=== PATIENT | female | born 1985 | race Caucasian/White ===

== ENCOUNTER 2018-10-03 12:31 | Inpatient (IN) | payer BC ==
[~2018-10-03] VITALS: Ht 170.2 cm; Wt 88.5 kg
[2018-10-03] MEDS: LR 1,000 ML IV SCH (08:45)
[2018-10-03] MEDS ORDERED: LR 1,000 ML IV ONE (13:35)
[2018-10-03] MEDS ORDERED: CEFAZOLIN 2 GM IVPB PREMIX 50 ML IV ONE ×2 (13:45→13:56)
[2018-10-03 14:09] LABS: BILIRUBIN,URINE NEGATIVE (NEGATIVE); BLOOD, URINE NEGATIVE (NEGATIVE); CLARITY/URINE CLEAR (CLEAR); COLOR,URINE YELLOW (YELLOW); GLUCOSE,URINE NEGATIVE (NEGATIVE); KETONES,URINE NEGATIVE (NEGATIVE); LEUKOCYTE ESTERASE ,URINE NEGATIVE (NEGATIVE); NITRITE, URINE NEGATIVE (NEGATIVE); PROTEIN URINE NEGATIVE (NEGATIVE); UROBILINOGEN,URINE 0.2 (0.2-1.0)
[2018-10-03 14:28] LABS: BASOPHILS % (AUTO) 0.1 % (0.0-2.0); EOSINOPHILS # (AUTO) 0.1 K/uL (0.0-0.4); EOSINOPHILS % (AUTO) 0.7 % (0.0-4.0); HEMATOCRIT 38.5 % (36-48); HEMOGLOBIN 13.1 g/dL (12.0-16.0); LYMPHOCYTES # (AUTO) 2.5 K/uL (1.0-5.5); LYMPHOCYTES % (AUTO) 20.9 % (20.5-51.5); MEAN CORPUSCULAR HEMOGLOBIN 33 pg (27-31); MEAN CORPUSCULAR HGB CONC 34 % (32-36); MEAN CORPUSCULAR VOLUME 97 fL (79.0-98.0); MONOCYTES # (AUTO) 0.7 K/uL (0.0-1.0); MONOCYTES % (AUTO) 5.6 % (1.7-9.3); NEUTROPHILS # (AUTO) 8.5 K/uL (1.8-7.7); NEUTROPHILS % (AUTO) 72.7 % (40.0-70.0); PLATELET COUNT (AUTO) 215 K/uL (130-430); RED BLOOD CELL COUNT(AUTO) 3.99 MIL/uL (4.2-6.2); RED CELL DISTRIBUTION WIDTH 12.2 % (9.0-15.0); WHITE BLOOD COUNT (AUTO) 11.8 K/uL (4.8-10.8)
[2018-10-03] MEDS ORDERED: LR 1,000 ML IV SCH (16:45)
[2018-10-03 16:51] VITALS: BP_SYST 126
[2018-10-03] MEDS ORDERED: OXYTOCIN/0.9 % SODIUM CHLORIDE 1,000 ML IV ONE (18:52)
[2018-10-03] MEDS ORDERED: KETOROLAC TROMETHAMINE 60 MG/2 ML VIAL IM PRN (19:00)
[2018-10-03] MEDS ORDERED: RHO(D) IMMUNE GLOBULIN/MALTOSE 1500 UNITS/1.3 ML (WINHRO) IM PRN (19:00)
[2018-10-03] MEDS ORDERED: NALOXONE HCL 0.4 MG/ML AMP (NARCAN) IVP PRN ×2 (19:00)
[2018-10-03] MEDS ORDERED: MEASLES,MUMPS&RUBELLA VACC/PF 12500 UNIT/0.5 ML VIAL SUBQ PRN (19:00)
[2018-10-03] MEDS ORDERED: NALBUPHINE HCL 10 MG/ML AMP IVP PRN (19:00)
[2018-10-03] MEDS ORDERED: DIPH-TET-PERTUS Vaccine 0.5 ML VIAL (ADACEL) I.M. PRN (19:00)
[2018-10-03] MEDS ORDERED: LANOLIN 7 GM OINT. TP PRN (19:00)
[2018-10-03] MEDS ORDERED: fentaNYL CITRATE/PF 100 MCG/2 ML AMP IVP PRN ×2 (19:00)
[2018-10-03] MEDS ORDERED: ONDANSETRON HCL 4 MG/2 ML VIAL IVP PRN (19:00)
[2018-10-03] MEDS ORDERED: DIPHENHYDRAMINE INJ 50 MG/ML VIAL IVP PRN (19:00)
[2018-10-03] MEDS ORDERED: MORPHINE SULFATE 10MG/10ML PF AMP SP SCH (19:00)
[2018-10-03] MEDS ORDERED: BISACODYL 10 MG/SUPPOSITORY RC PRN (19:00)
[2018-10-03 19:09] VITALS: BP_SYST 102
[2018-10-03] MEDS ORDERED: HYDROcodone/ACETAMIN 5-325 MG TAB (NORCO/ VICODIN) PO PRN (21:00)
[2018-10-03] MEDS ORDERED: TEMAZEPAM 15 MG CAPSULE PO PRN (21:00)
[2018-10-03] MEDS: CEFAZOLIN 1 GM IVPB PREMIX 50 ML IV SCH (23:32)
[2018-10-04] MEDS: CEFAZOLIN 1 GM IVPB PREMIX 50 ML IV SCH (06:17)
[2018-10-04] MEDS: KETOROLAC TROMETHAMINE 30 MG VIAL IVP SCH ×4 (06:18→23:28)
[2018-10-04 07:33] LABS: BASOPHILS % (AUTO) 0.2 % (0.0-2.0); EOSINOPHILS # (AUTO) 0.1 K/uL (0.0-0.4); EOSINOPHILS % (AUTO) 0.9 % (0.0-4.0); HEMATOCRIT 32.9 % (36-48); HEMOGLOBIN 11.3 g/dL (12.0-16.0); LYMPHOCYTES # (AUTO) 2.6 K/uL (1.0-5.5); LYMPHOCYTES % (AUTO) 17.6 % (20.5-51.5); MEAN CORPUSCULAR HEMOGLOBIN 33 pg (27-31); MEAN CORPUSCULAR HGB CONC 34 % (32-36); MEAN CORPUSCULAR VOLUME 97 fL (79.0-98.0); MONOCYTES % (AUTO) 6.5 % (1.7-9.3); NEUTROPHILS # (AUTO) 11.2 K/uL (1.8-7.7); NEUTROPHILS % (AUTO) 74.8 % (40.0-70.0); PLATELET COUNT (AUTO) 180 K/uL (130-430); RED BLOOD CELL COUNT(AUTO) 3.41 MIL/uL (4.2-6.2); RED CELL DISTRIBUTION WIDTH 12.2 % (9.0-15.0); WHITE BLOOD COUNT (AUTO) 14.9 K/uL (4.8-10.8)
[2018-10-04] MEDS: LR 1,000 ML IV SCH (08:45)
[2018-10-04] MEDS: OXYCODONE/ACETAMINOPHEN 5-325 TABLET PO PRN (15:12)
[2018-10-04] MEDS: SIMETHICONE 80 MG TAB.CHEW PO PRN ×2 (15:12→23:28)
[2018-10-04] MEDS: DOCUSATE SODIUM 100 MG CAPSULE PO PRN (15:12)
[2018-10-05] MEDS: IBUPROFEN 600 MG TABLET PO SCH ×4 (06:21→19:50)
[2018-10-05] MEDS: OXYCODONE/ACETAMINOPHEN 5-325 TABLET PO PRN ×2 (12:50→19:52)
[2018-10-05] MEDS: SENNOSIDES/DOCUSATE SODIUM 1 TAB TABLET(SENOKOT-S) PO PRN (12:50)
[2018-10-05] MEDS: DOCUSATE SODIUM 100 MG CAPSULE PO PRN (12:50)
[2018-10-05] MEDS: SIMETHICONE 80 MG TAB.CHEW PO PRN ×2 (12:51→19:06)
[2018-10-06] MEDS: IBUPROFEN 600 MG TABLET PO SCH ×4 (02:00→17:50)
[2018-10-06] MEDS: OXYCODONE/ACETAMINOPHEN 5-325 TABLET PO PRN ×5 (08:20→22:24)
[2018-10-06] MEDS: SIMETHICONE 80 MG TAB.CHEW PO PRN (12:26)
[2018-10-06] MEDS: DOCUSATE SODIUM 100 MG CAPSULE PO PRN (12:26)
[2018-10-06] MEDS: SENNOSIDES/DOCUSATE SODIUM 1 TAB TABLET(SENOKOT-S) PO PRN (13:20)
[2018-10-07] MEDS: IBUPROFEN 600 MG TABLET PO SCH ×2 (00:47→06:17)
[2018-10-07] MEDS: OXYCODONE/ACETAMINOPHEN 5-325 TABLET PO PRN ×3 (03:02→09:35)
[2018-10-07] MEDS ORDERED: MORPHINE SULFATE 10MG/10ML PF AMP EP ONE (17:50)
[2018-10-07] MEDS ORDERED: WATER FOR IRRIGATION,STERILE 1,000 ML IRRIG.SOLN IR ONE (17:50)
[2018-10-07] MEDS ORDERED: MIDAZOLAM HCL 5 MG/5 ML VIAL IVP ONE (17:50)
[2018-10-07] MEDS ORDERED: ONDANSETRON HCL 4 MG/2 ML VIAL IVP ONE (17:50)
[2018-10-07] MEDS ORDERED: NS 1000 ML IV.SOLN IV ONE (17:50)
[2018-10-07] MEDS ORDERED: LR 1,000 ML IV.SOLN IV ONE (17:50)
[2018-10-07] MEDS ORDERED: BUPIVACAINE /PF 0.5% 30 ML VIAL EP ONE (17:50)
== END 2018-10-07 11:54 | disposition home or self-care (01) | DRG 787 ==
LOC: SPU 12:31
PROVIDERS: ADMIT Specialist; ATTEND Specialist
PROC: 10D00Z1 Extraction of Products of Conception, Low, Open Approach (ICD-10-PCS; principal; 2018-10-05)
DX: O75.89 Other specified complications of labor and delivery (principal); Q79.6 Ehlers-Danlos syndromes; Z3A.39 39 weeks gestation of pregnancy; Z37.0 Single live birth
CPT/HCPCS: 36415; 81003; 85025; 86592; 86886; 86900; 86901; 94760; A4618; J0690; J1885; J2250; J2274; J2405; J2590; J3490; J7030; J7120

== ENCOUNTER 2019-10-25 13:13 | Observation (INO) | payer BC | END 2019-10-25 14:45 | disposition home or self-care (01) | LOC: SPU 13:13 | PROVIDERS: ADMIT Specialist; ATTEND Specialist | DX: O26.892 Other specified pregnancy related conditions, second trimester (principal); R51 Headache; O99.89 Other specified diseases and conditions complicating pregnancy, childbirth and the puerperium; H53.8 Other visual disturbances; Z3A.20 20 weeks gestation of pregnancy | CPT/HCPCS: 81002; G0378 ==

== ENCOUNTER 2019-11-15 09:09 | Inpatient (IN) | payer BC ==
[~2019-11-15] VITALS: Ht 170.2 cm; Wt 93.9 kg
[2019-11-15] MEDS ORDERED: LR 1,000 ML IV ONE (14:50)
[2019-11-15] MEDS ORDERED: CEFAZOLIN 2 GM IVPB PREMIX 50 ML IV ONE (15:00)
[2019-11-15 15:38] LABS: BILIRUBIN,URINE NEGATIVE (NEGATIVE); BLOOD, URINE NEGATIVE (NEGATIVE); CLARITY/URINE CLEAR (CLEAR); COLOR,URINE YELLOW (YELLOW); GLUCOSE,URINE NEGATIVE (NEGATIVE); KETONES,URINE NEGATIVE (NEGATIVE); LEUKOCYTE ESTERASE ,URINE NEGATIVE (NEGATIVE); NITRITE, URINE NEGATIVE (NEGATIVE); PH,URINE 6.5 (5.0-8.0); PROTEIN URINE NEGATIVE (NEGATIVE); UROBILINOGEN,URINE 0.2 (0.2-1.0)
[2019-11-15 15:48] LABS: BASOPHILS % (AUTO) 0.3 % (0.0-2.0); EOSINOPHILS # (AUTO) 0.1 K/uL (0.0-0.4); EOSINOPHILS % (AUTO) 0.8 % (0.0-4.0); HEMATOCRIT 39.1 % (36-48); HEMOGLOBIN 13.3 g/dL (12.0-16.0); LYMPHOCYTES # (AUTO) 4.2 K/uL (1.0-5.5); LYMPHOCYTES % (AUTO) 27.8 % (20.5-51.5); MEAN CORPUSCULAR HEMOGLOBIN 33 pg (27-31); MEAN CORPUSCULAR HGB CONC 34 % (32-36); MEAN CORPUSCULAR VOLUME 96 fL (79.0-98.0); MONOCYTES # (AUTO) 0.8 K/uL (0.0-1.0); MONOCYTES % (AUTO) 5.3 % (1.7-9.3); NEUTROPHILS # (AUTO) 9.9 K/uL (1.8-7.7); NEUTROPHILS % (AUTO) 65.8 % (40.0-70.0); PLATELET COUNT (AUTO) 236 K/uL (130-430); RED BLOOD CELL COUNT(AUTO) 4.08 MIL/uL (4.2-6.2); RED CELL DISTRIBUTION WIDTH 12.9 % (9.0-15.0); WHITE BLOOD COUNT (AUTO) 15.1 K/uL (4.8-10.8)
[2019-11-15] MEDS ORDERED: LR 1,000 ML IV.SOLN IV ONE (16:00)
[2019-11-15] MEDS ORDERED: NEOSTIGMINE METHYLSULFATE 1 MG/ML, 10 ML VIAL IVP ONE (16:00)
[2019-11-15] MEDS ORDERED: ONDANSETRON HCL 4 MG/2 ML VIAL IVP ONE (16:00)
[2019-11-15] MEDS ORDERED: MIDAZOLAM HCL 5 MG/5 ML VIAL IVP ONE (16:00)
[2019-11-15] MEDS ORDERED: TRIAMCINOLONE ACETONIDE 40 MG/ML IM ONE (16:00)
[2019-11-15] MEDS ORDERED: BUPIVACAINE /DEX PF 0.75% SPINAL 2 ML AMP INJ ONE (16:00)
[2019-11-15] MEDS ORDERED: MORPHINE SULFATE 10MG/10ML PF AMP EP ONE (16:00)
[2019-11-15] MEDS ORDERED: KETOROLAC TROMETHAMINE 30 MG VIAL IVP ONE (16:00)
[2019-11-15] MEDS ORDERED: TRIAMCINOLONE ACETONIDE 40 MG/ML ONE (16:44)
[2019-11-15] MEDS ORDERED: KETOROLAC TROMETHAMINE 60 MG/2 ML VIAL IM PRN (16:45)
[2019-11-15] MEDS ORDERED: MORPHINE SULFATE 10MG/10ML PF AMP SP SCH (16:45)
[2019-11-15] MEDS ORDERED: ONDANSETRON HCL 4 MG/2 ML VIAL IVP PRN (16:45)
[2019-11-15] MEDS ORDERED: DIPHENHYDRAMINE INJ 50 MG/ML VIAL IVP PRN (16:45)
[2019-11-15] MEDS ORDERED: fentaNYL CITRATE/PF 100 MCG/2 ML AMP IVP PRN ×2 (16:45)
[2019-11-15] MEDS ORDERED: NALBUPHINE HCL 10 MG/ML AMP IVP PRN (16:45)
[2019-11-15] MEDS ORDERED: NALOXONE HCL 0.4 MG/ML AMP (NARCAN) IVP PRN ×2 (16:45)
[2019-11-15] MEDS ORDERED: LR 1,000 ML IV SCH (17:01)
[2019-11-15] MEDS ORDERED: OXYCODONE/ACETAMINOPHEN 5-325 TABLET PO PRN (17:15)
[2019-11-15] MEDS ORDERED: DIPH-TET-PERTUS Vaccine 0.5 ML VIAL (ADACEL) I.M. PRN (17:15)
[2019-11-15] MEDS ORDERED: ANUSOL 1 EA SUPP.RECT (PREPARATION H) RC PRN (17:15)
[2019-11-15] MEDS ORDERED: BISACODYL 10 MG/SUPPOSITORY RC PRN (17:15)
[2019-11-15] MEDS ORDERED: LANOLIN 7 GM OINT. TP PRN (17:15)
[2019-11-15] MEDS ORDERED: SENNOSIDES/DOCUSATE SODIUM 1 TAB TABLET(SENOKOT-S) PO PRN (17:15)
[2019-11-15] MEDS ORDERED: RHO(D) IMMUNE GLOBULIN/MALTOSE 1500 UNITS/1.3 ML (WINHRO) IM PRN (17:15)
[2019-11-15] MEDS ORDERED: MEASLES,MUMPS&RUBELLA VACC/PF 12500 UNIT/0.5 ML VIAL SUBQ PRN (17:15)
[2019-11-15] MEDS ORDERED: OXYTOCIN/0.9 % SODIUM CHLORIDE 1,000 ML IV ONE (17:31)
[2019-11-15] MEDS ORDERED: KETOROLAC TROMETHAMINE 30 MG VIAL IVP SCH (18:00)
[2019-11-15 18:46] VITALS: BP_SYST 123
[2019-11-15] MEDS: CEFAZOLIN 1 GM IVPB PREMIX 50 ML IV SCH (20:57)
[2019-11-15] MEDS: KETOROLAC TROMETHAMINE 30 MG VIAL IVP SCH (20:58)
[2019-11-16] MEDS: SIMETHICONE 80 MG TAB.CHEW PO PRN ×5 (00:57→18:16)
[2019-11-16] MEDS: DOCUSATE SODIUM 100 MG CAPSULE PO PRN ×2 (00:58→18:16)
[2019-11-16] MEDS: OXYTOCIN/0.9 % SODIUM CHLORIDE 1,000 ML IV SCH ×2 (00:59→10:36)
[2019-11-16] MEDS: KETOROLAC TROMETHAMINE 30 MG VIAL IVP SCH ×3 (03:26→15:17)
[2019-11-16] MEDS: CEFAZOLIN 1 GM IVPB PREMIX 50 ML IV SCH ×2 (03:27→09:14)
[2019-11-16 07:03] LABS: BASOPHILS # (AUTO) 0.1 K/uL (0.0-0.2); BASOPHILS % (AUTO) 0.3 % (0.0-2.0); EOSINOPHILS % (AUTO) 0.1 % (0.0-4.0); HEMOGLOBIN 12.1 g/dL (12.0-16.0); LYMPHOCYTES % (AUTO) 16.7 % (20.5-51.5); MEAN CORPUSCULAR HEMOGLOBIN 33 pg (27-31); MEAN CORPUSCULAR HGB CONC 35 % (32-36); MEAN CORPUSCULAR VOLUME 96 fL (79.0-98.0); MONOCYTES # (AUTO) 0.9 K/uL (0.0-1.0); MONOCYTES % (AUTO) 5.4 % (1.7-9.3); NEUTROPHILS # (AUTO) 13.7 K/uL (1.8-7.7); NEUTROPHILS % (AUTO) 77.5 % (40.0-70.0); PLATELET COUNT (AUTO) 228 K/uL (130-430); RED BLOOD CELL COUNT(AUTO) 3.64 MIL/uL (4.2-6.2); WHITE BLOOD COUNT (AUTO) 17.7 K/uL (4.8-10.8)
[2019-11-16] MEDS: IBUPROFEN 600 MG TABLET PO SCH (18:17)
[2019-11-17] MEDS: IBUPROFEN 600 MG TABLET PO SCH ×6 (00:01→23:44)
[2019-11-17] MEDS: TEMAZEPAM 15 MG CAPSULE PO PRN ×2 (00:16→23:07)
[2019-11-17] MEDS: OXYCODONE/ACETAMINOPHEN *10*mg/325 mg TABLET PO PRN ×5 (00:16→20:09)
[2019-11-17] MEDS: DOCUSATE SODIUM 100 MG CAPSULE PO PRN (06:22)
[2019-11-17] MEDS: SIMETHICONE 80 MG TAB.CHEW PO PRN (06:22)
[2019-11-17] MEDS: HYDROcodone/ACETAMIN 5-325 MG TAB (NORCO/ VICODIN) PO PRN (20:10)
[2019-11-18] MEDS: HYDROcodone/ACETAMIN 5-325 MG TAB (NORCO/ VICODIN) PO PRN (05:48)
[2019-11-18] MEDS: OXYCODONE/ACETAMINOPHEN *10*mg/325 mg TABLET PO PRN ×3 (05:49→20:35)
[2019-11-18] MEDS: IBUPROFEN 600 MG TABLET PO SCH ×4 (05:49→23:45)
[2019-11-18] MEDS: TEMAZEPAM 15 MG CAPSULE PO PRN (20:34)
[2019-11-19] MEDS: OXYCODONE/ACETAMINOPHEN *10*mg/325 mg TABLET PO PRN ×2 (02:51→06:58)
[2019-11-19] MEDS: IBUPROFEN 600 MG TABLET PO SCH (06:11)
== END 2019-11-19 09:00 | disposition home or self-care (01) | DRG 787 ==
LOC: OBSVTOIN 09:09 → SPU 09:09
PROVIDERS: ADMIT Specialist; ATTEND Specialist
PROC: 10D00Z1 Extraction of Products of Conception, Low, Open Approach (ICD-10-PCS; principal; 2019-11-16)
DX: O34.211 Maternal care for low transverse scar from previous cesarean delivery (principal); Q79.60 Ehlers-Danlos syndrome, unspecified; O75.89 Other specified complications of labor and delivery; O41.8X90 Other specified disorders of amniotic fluid and membranes, unspecified trimester, not applicable or unspecified; Z37.0 Single live birth; Z3A.38 38 weeks gestation of pregnancy
CPT/HCPCS: 36415; 81003; 85025; 86886; 86900; 86901; 94760; J0690; J1200; J1885; J2250; J2274; J2405; J2590; J2710; J3301; J3490; J7120

== ENCOUNTER 2020-08-16 20:20 | Emergency (ER) | payer BC, MEDICAID ==
[~2020-08-16] VITALS: Ht 170.2 cm; Wt 68.0 kg
[2020-08-16 20:36] VITALS: BP_SYST 152
--- NOTE | 2020-08-16 20:36 | NUR ---
Patient triaged and placed in waiting room. VSS and patient appears in no acute distress at this time. Accompanied by FRIEND, awaiting available bed, and MD notified of need for MSE.
--- NOTE | 2020-08-16 23:00 | NUR ---
Per library clerk, pt LWBS.
== END 2020-08-16 23:00 | disposition left against medical advice (07) ==
LOC: SED 20:20
DX: R11.10 Vomiting, unspecified (principal); R51.9 Headache, unspecified; Z53.21 Procedure and treatment not carried out due to patient leaving prior to being seen by health care provider

== ENCOUNTER 2021-02-21 07:35 | Emergency (ER) | payer MEDICAID ==
[~2021-02-21] VITALS: Ht 170.2 cm; Wt 68.0 kg
[2021-02-21 07:43] VITALS: BP_SYST 119
[2021-02-21] MEDS ORDERED: ONDANSETRON HCL 4 MG/2 ML VIAL IVP ONE (08:00)
[2021-02-21] MEDS ORDERED: NACL 0.9% 1,000 ML IV ONE (08:00)
[2021-02-21 08:42] LABS: BILIRUBIN,URINE NEGATIVE (NEGATIVE); BLOOD, URINE 1+ (NEGATIVE); CLARITY/URINE CLEAR (CLEAR); COLOR,URINE YELLOW (YELLOW); GLUCOSE,URINE NEGATIVE (NEGATIVE); KETONES,URINE NEGATIVE (NEGATIVE); LEUKOCYTE ESTERASE ,URINE NEGATIVE (NEGATIVE); NITRITE, URINE NEGATIVE (NEGATIVE); PROTEIN URINE NEGATIVE (NEGATIVE); UROBILINOGEN,URINE 0.2 (0.2-1.0)
[2021-02-21 08:43] LABS: BASOPHILS % (AUTO) 0.7 % (0.0-2.0); EOSINOPHILS % (AUTO) 0.3 % (0.0-4.0); HEMATOCRIT 40.3 % (36-48); HEMOGLOBIN 13.6 g/dL (12.0-16.0); LYMPHOCYTES # (AUTO) 1.6 K/uL (1.0-5.5); MEAN CORPUSCULAR HEMOGLOBIN 31 pg (27-31); MEAN CORPUSCULAR HGB CONC 34 % (32-36); MEAN CORPUSCULAR VOLUME 91 fL (79.0-98.0); MONOCYTES # (AUTO) 0.2 K/uL (0.0-1.0); MONOCYTES % (AUTO) 3.6 % (1.7-9.3); NEUTROPHILS # (AUTO) 3.5 K/uL (1.8-7.7); NEUTROPHILS % (AUTO) 65.4 % (40.0-70.0); PLATELET COUNT (AUTO) 226 K/uL (130-430); RED BLOOD CELL COUNT(AUTO) 4.42 MIL/uL (4.2-6.2); RED CELL DISTRIBUTION WIDTH 12.4 % (9.0-15.0); WHITE BLOOD COUNT (AUTO) 5.4 K/uL (4.8-10.8)
[2021-02-21 08:52] LABS: CALCIUM 9.5 mg/dL (8.4-11.0); CREATININE 1.05 mg/dL (0.55-1.30); POTASSIUM 3.2 mmol/L (3.5-5.1)
[2021-02-21 08:56] LABS: BARBITURATE, URINE NEGATIVE (NEG <=200); BENZODIAZEPINE, URINE POSITIVE (NEG <=150); CANNABINOID, URINE POSITIVE (NEG <=50); COCAINE, URINE NEGATIVE (NEG <=150); METHAMPHETAMINES SCREEN,URINE NEGATIVE (NEG <=500); OPIATE, URINE NEGATIVE (NEG <=100); PHENCYCLIDINE SCREEN,URINE NEGATIVE (NEG <=25); UR TRICYCLIC ANTIDEPRESSANTS NEGATIVE (NEG <=300); URINE AMPHETAMINE NEGATIVE (NEG <=500); URINE METHADONE NEGATIVE (NEG <=200); URINE OXYCODONE SCREEN NEGATIVE (NEG <=100); URINE PROPOXYPHENE SCREEN NEGATIVE (NEG <=300)
[2021-02-21 08:58] LABS: ALBUMIN 4.4 g/dL (3.4-4.8); TOTAL BILIRUBIN 0.7 mg/dL (0.0-1.0)
[2021-02-21 09:06] LABS: BACTERIA,URINE RARE /HPF (None Seen); WBC,URINE 0-3 /HPF (0-3)
[2021-02-21] MEDS ORDERED: ALPR-373 PO (09:19)
[2021-02-21 09:26] VITALS: BP_SYST 119
== END 2021-02-21 09:25 | disposition home or self-care (01) ==
LOC: SED 07:35
DX: F41.9 Anxiety disorder, unspecified (principal); R42 Dizziness and giddiness; Z88.1 Allergy status to other antibiotic agents; Z88.8 Allergy status to other drugs, medicaments and biological substances; Z79.899 Other long term (current) drug therapy
CPT/HCPCS: 36415; 71045; 80053; 80307; 81000; 81025; 82550; 84484; 85025; 93005; 96374; 99285; J2405; J7030

== ENCOUNTER 2021-03-29 08:47 | Emergency (ER) | payer MEDICAID ==
[~2021-03-29] VITALS: Ht 170.2 cm; Wt 68.0 kg
[~2021-03-29 08:47] MED LIST: ALPR-373 PO
--- NOTE | 2021-03-29 09:11 | NUR ---
ER at bedside examining patient.
--- NOTE | 2021-03-29 09:11 | NUR ---
Patient to ER bed 8 to gown for evaluation. Side rails up.
--- NOTE | 2021-03-29 09:12 | NUR ---
PT ARRIVES FROM HOME W/ UNCONTROLLABLE ANXIETY ATTACKS. PT USUALLY TAKES RESPRIDOLE, HOWEVER, SHE RECENTLY RAN OUT,
[2021-03-29 09:15] VITALS: BP_SYST 125
[2021-03-29] MEDS ORDERED: LORazepam 1 MG TABLET PO ONE (09:15)
--- NOTE | 2021-03-29 09:27 | NUR ---
MEDICATED W/ ATIVAN PER MD ORDER
--- NOTE | 2021-03-29 10:00 | NUR ---
DR. CESPEDES AT THE BEDSIDE
[2021-03-29 10:27] VITALS: BP_SYST 125
--- NOTE | 2021-03-29 10:28 | NUR ---
Patient given written and verbal discharge instructions and verbalizes understanding. ER MD discussed with patient the results and treatment provided. Patient in stable condition. ID arm band removed. Rx of CYMBALTA AND SEROQUEL given. Patient educated on pain management and to follow up with PMD. Pain Scale 0/10. Opportunity for questions provided and answered. Medication side effect fact sheet provided.
== END 2021-03-29 09:11 | disposition home or self-care (01) ==
LOC: SED 08:47
DX: F41.0 Panic disorder [episodic paroxysmal anxiety] (principal); Z76.0 Encounter for issue of repeat prescription; Z88.1 Allergy status to other antibiotic agents; Z88.8 Allergy status to other drugs, medicaments and biological substances; Z79.899 Other long term (current) drug therapy
CPT/HCPCS: 99283

== ENCOUNTER 2021-05-02 12:31 | Emergency (ER) | payer MEDICAID ==
[~2021-05-02] VITALS: Ht 170.2 cm; Wt 63.5 kg
[2021-05-02 12:45] VITALS: BP_SYST 139
--- NOTE | 2021-05-02 12:45 | NUR ---
Patient to ER bed 1 to gown for evaluation. Side rails up. Report given to Maria Teresa WEISS.
--- NOTE | 2021-05-02 12:48 | NUR ---
PAGE Meehan at bedside examining patient.
--- NOTE | 2021-05-02 13:00 | NUR ---
PT CAME IN C/O FEELING SHAKY, RACING HEART, CONFUSION AND VISUAL DISTURBANCES, STATES SHE WAS STARTED ON SEROQUEL RECENTLY AND IS TAKING UP TO 200MG DAILY. AT HOME PT HAS BEEN TAKING ATARAX AND BENADRYL TO TREAT SIDE EFFECTS WHICH HAS NOT HELPED. PT PRESENTS WITH RAPID SPEECH AND TACHYCARDIC 120S-140S. AAOX4, OTHER V/S STABLE
[2021-05-02] MEDS ORDERED: NS 1000 ML IV.SOLN IV ONE (13:15)
[2021-05-02] MEDS ORDERED: DIAZEPAM 10 MG/2 ML DISP.SYRIN IVP ONE (13:15)
--- NOTE | 2021-05-02 13:15 | NUR ---
# 20 gauge angiocath placed to LAC. Use of asceptic technique. Opsite placed over site. Blood return noted. Blood for lab drawn from site. Flushed with 10 cc of normal saline. No evidence of infiltration noted. Patient tolerated well.
--- NOTE | 2021-05-02 13:34 | NUR ---
PER PHARMACY IV VALIUM IS NOT AVAILABLE, MADE AWARE
[2021-05-02 13:46] LABS: BASOPHILS % (AUTO) 0.8 % (0.0-2.0); EOSINOPHILS # (AUTO) 0.1 K/uL (0.0-0.4); EOSINOPHILS % (AUTO) 0.8 % (0.0-4.0); HEMATOCRIT 36.4 % (36-48); HEMOGLOBIN 12.6 g/dL (12.0-16.0); LYMPHOCYTES # (AUTO) 2.2 K/uL (1.0-5.5); LYMPHOCYTES % (AUTO) 35.1 % (20.5-51.5); MEAN CORPUSCULAR HEMOGLOBIN 31 pg (27-31); MEAN CORPUSCULAR HGB CONC 35 % (32-36); MEAN CORPUSCULAR VOLUME 90 fL (79.0-98.0); MONOCYTES # (AUTO) 0.3 K/uL (0.0-1.0); MONOCYTES % (AUTO) 5.5 % (1.7-9.3); NEUTROPHILS # (AUTO) 3.6 K/uL (1.8-7.7); NEUTROPHILS % (AUTO) 57.8 % (40.0-70.0); PLATELET COUNT (AUTO) 255 K/uL (130-430); RED BLOOD CELL COUNT(AUTO) 4.04 MIL/uL (4.2-6.2); RED CELL DISTRIBUTION WIDTH 12.6 % (9.0-15.0); WHITE BLOOD COUNT (AUTO) 6.3 K/uL (4.8-10.8)
[2021-05-02 13:50] LABS: CALCIUM 9.2 mg/dL (8.4-11.0); CREATININE 0.99 mg/dL (0.55-1.30)
[2021-05-02 13:54] LABS: PROTHROMBIN TIME 10.9 SECS (9.5-12.5)
[2021-05-02 13:54] LABS: BILIRUBIN,URINE NEGATIVE (NEGATIVE); BLOOD, URINE NEGATIVE (NEGATIVE); CLARITY/URINE CLEAR (CLEAR); COLOR,URINE YELLOW (YELLOW); GLUCOSE,URINE NEGATIVE (NEGATIVE); KETONES,URINE NEGATIVE (NEGATIVE); LEUKOCYTE ESTERASE ,URINE NEGATIVE (NEGATIVE); NITRITE, URINE NEGATIVE (NEGATIVE); PROTEIN URINE NEGATIVE (NEGATIVE); UROBILINOGEN,URINE 0.2 (0.2-1.0)
[2021-05-02 13:56] LABS: ALBUMIN 4.3 g/dL (3.4-4.8); TOTAL BILIRUBIN 0.3 mg/dL (0.0-1.0)
[2021-05-02] MEDS ORDERED: LORazepam 2 MG/ML VIAL IVP ONE (14:00)
--- NOTE | 2021-05-02 14:20 | NUR ---
Guy augustine in [facility] - 05/02/21 at 1638 by [email or web address] ADMISSION ORDERS RECIEVED BY DR. ALTMAN
[2021-05-02] MEDS ORDERED: POTASSIUM CHLORIDE 20 MEQ TAB.PRT.SR PO ONE (14:30)
[2021-05-02] MEDS ORDERED: LORazepam 2 MG/ML VIAL IVP PRN (14:30)
[2021-05-02] MEDS ORDERED: NACL 0.9% 1,000 ML IV SCH (14:30)
[2021-05-02] MEDS ORDERED: LORA-259 PO (15:19)
--- NOTE | 2021-05-02 15:30 | NUR ---
PT RESTING IN BED, STATES "I FEEL SIVA BETTER", IN NO DISTRESS, V/S STABLE
--- NOTE | 2021-05-02 16:28 | NUR ---
Patient given written and verbal discharge instructions and verbalizes understanding. ER MD discussed with patient the results and treatment provided. Patient in stable condition. ID arm band removed. IV catheter removed intact and dressing applied, no active bleeding. Rx of ATIVAN given. Patient educated on pain management and to follow up with PMD. Pain Scale 0/10. Opportunity for questions provided and answered. Medication side effect fact sheet provided.
[2021-05-02 16:30] VITALS: BP_SYST 132
== END 2021-05-02 16:28 | disposition home or self-care (01) ==
LOC: SED 12:31 → UNDOADMIN 14:20 → STU 14:20 → UNDODISIN 16:28 → STU 16:28
DX: F13.239 Sedative, hypnotic or anxiolytic dependence with withdrawal, unspecified (principal); F39 Unspecified mood [affective] disorder; F41.9 Anxiety disorder, unspecified; Z79.899 Other long term (current) drug therapy; Z88.1 Allergy status to other antibiotic agents; Z88.8 Allergy status to other drugs, medicaments and biological substances
CPT/HCPCS: 36415; 71045; 80053; 81003; 82550; 83605; 84443; 84484; 85025; 85610; 85730; 87040; 87086; 93005; 96374; 99285; J2060; G0378

== ENCOUNTER 2021-07-31 11:38 | Emergency (ER) | payer MEDICAID ==
[~2021-07-31] VITALS: Ht 170.2 cm; Wt 63.5 kg
[~2021-07-31 11:38] MED LIST changes: +LORA-259 PO
[2021-07-31 11:45] VITALS: BP_SYST 117
--- NOTE | 2021-07-31 12:24 | NUR ---
PLACED IN [facility]. Dr. MICHELE EXAMINING PT
[2021-07-31] MEDS ORDERED: AMOX500C2 PO (12:29)
--- NOTE | 2021-07-31 12:32 | NUR ---
Patient given written and verbal discharge instructions and verbalizes understanding. ER MD discussed with patient the results and treatment provided. Patient in stable condition. ID arm band removed. Rx of AMOXICILLIN, given. Patient educated on pain management and to follow up with PMD. Pain Scale 0/10 Opportunity for questions provided and answered. Medication side effect fact sheet provided.
[2021-07-31 12:38] VITALS: BP_SYST 117
== END 2021-07-31 12:38 | disposition home or self-care (01) ==
LOC: SED 11:38
DX: S01.511A Laceration without foreign body of lip, initial encounter (principal); Z88.1 Allergy status to other antibiotic agents; Z88.8 Allergy status to other drugs, medicaments and biological substances; Z79.899 Other long term (current) drug therapy; W22.8XXA Striking against or struck by other objects, initial encounter; Y93.89 Activity, other specified; Y92.89 Other specified places as the place of occurrence of the external cause; Y99.8 Other external cause status
CPT/HCPCS: 99283

== ENCOUNTER 2021-12-08 06:13 | Emergency (ER) | payer MEDICAID ==
[~2021-12-08] VITALS: Ht 170.2 cm; Wt 68.0 kg
[~2021-12-08 06:13] MED LIST changes: +AMOX500C2 PO
[2021-12-08 06:25] VITALS: BP_SYST 139
[2021-12-08] MEDS ORDERED: DIPHENHYDRAMINE HCL 25 MG CAPSULE PO ONE (06:45)
[2021-12-08] MEDS ORDERED: METOCLOPRAMIDE HCL 10 MG TABLET PO ONE (06:45)
[2021-12-08] MEDS ORDERED: DIPHENHYDRAMINE HCL 50 MG CAPSULE ONE (06:47)
[2021-12-08] MEDS ORDERED: METOCLOPRAMIDE HCL 10 MG TABLET ONE (06:47)
[2021-12-08] MEDS ORDERED: ONDANSETRON HCL 4 MG/2 ML VIAL IVP ONE (08:00)
[2021-12-08] MEDS ORDERED: NACL 0.9% 1,000 ML IV ONE (08:00)
[2021-12-08] MEDS ORDERED: MORPHINE 2 MG/ML INJ. SYRINGE IVP ONE (08:00)
[2021-12-08] MEDS ORDERED: PANTOPRAZOLE SODIUM 40 MG/VIAL (PROTONIX) IVP ONE (08:00)
[2021-12-08 08:13] LABS: BILIRUBIN,URINE NEGATIVE (NEGATIVE); BLOOD, URINE 2+ (NEGATIVE); CLARITY/URINE SL CLOUDY (CLEAR); COLOR,URINE YELLOW (YELLOW); GLUCOSE,URINE NEGATIVE (NEGATIVE); KETONES,URINE NEGATIVE (NEGATIVE); LEUKOCYTE ESTERASE ,URINE NEGATIVE (NEGATIVE); NITRITE, URINE NEGATIVE (NEGATIVE); PH,URINE 7.5 (5.0-8.0); PROTEIN URINE 1+ (NEGATIVE); UROBILINOGEN,URINE 0.2 (0.2-1.0)
[2021-12-08 08:21] LABS: BASOPHILS # (AUTO) 0.1 K/uL (0.0-0.2); BASOPHILS % (AUTO) 0.4 % (0.0-2.0); EOSINOPHILS % (AUTO) 0.1 % (0.0-4.0); HEMATOCRIT 39.3 % (36-48); HEMOGLOBIN 13.2 g/dL (12.0-16.0); LYMPHOCYTES # (AUTO) 1.6 K/uL (1.0-5.5); LYMPHOCYTES % (AUTO) 10.7 % (20.5-51.5); MEAN CORPUSCULAR HEMOGLOBIN 31 pg (27-31); MEAN CORPUSCULAR HGB CONC 34 % (32-36); MEAN CORPUSCULAR VOLUME 92 fL (79.0-98.0); MONOCYTES # (AUTO) 0.5 K/uL (0.0-1.0); MONOCYTES % (AUTO) 3.4 % (1.7-9.3); NEUTROPHILS # (AUTO) 12.6 K/uL (1.8-7.7); NEUTROPHILS % (AUTO) 85.4 % (40.0-70.0); PLATELET COUNT (AUTO) 327 K/uL (130-430); RED BLOOD CELL COUNT(AUTO) 4.27 MIL/uL (4.2-6.2); RED CELL DISTRIBUTION WIDTH 13.2 % (9.0-15.0); WHITE BLOOD COUNT (AUTO) 14.7 K/uL (4.8-10.8)
[2021-12-08 08:34] LABS: CALCIUM 9.8 mg/dL (8.4-11.0); CREATININE 0.88 mg/dL (0.55-1.30); POTASSIUM 3.7 mmol/L (3.5-5.1)
[2021-12-08 08:40] LABS: ALBUMIN 4.7 g/dL (3.4-4.8); TOTAL BILIRUBIN 0.2 mg/dL (0.0-1.0)
[2021-12-08 09:47] LABS: BACTERIA,URINE FEW /HPF (None Seen); WBC,URINE 0-3 /HPF (0-3)
[2021-12-08] MEDS ORDERED: DIPHENHYDRAMINE INJ 50 MG/ML VIAL IVP ONE (10:00)
[2021-12-08] MEDS ORDERED: MORPHINE 4 MG INJ. 4 MG/ML VIAL IVP ONE (10:00)
[2021-12-08 11:23] VITALS: BP_SYST 130
== END 2021-12-08 11:12 | disposition home or self-care (01) ==
LOC: SED 06:13
DX: R11.2 Nausea with vomiting, unspecified (principal); R51.9 Headache, unspecified; T42.6X5A Adverse effect of other antiepileptic and sedative-hypnotic drugs, initial encounter; Y92.89 Other specified places as the place of occurrence of the external cause
CPT/HCPCS: 36415; 80053; 81000; 83690; 85025; 96361; 96374; 96375; 96376; 99285; C9113; J1200; J2270 ×2; J2405; J7030; J8597; Q0163

== ENCOUNTER 2021-12-09 08:07 | Emergency (ER) | payer MEDICAID ==
[~2021-12-09] VITALS: Ht 170.2 cm; Wt 68.0 kg
[2021-12-09 08:42] VITALS: BP_SYST 145
[2021-12-09] MEDS ORDERED: BENZTROPINE MESYLATE 2 MG/ 2 ML AMP IVP ONE (10:00)
[2021-12-09] MEDS ORDERED: PROCHLORPERAZINE EDISYLATE 10 MG/2 ML VIAL IVP ONE (10:00)
[2021-12-09] MEDS ORDERED: NACL 0.9% 1,000 ML IV ONE (10:00)
[2021-12-09] MEDS ORDERED: METOCLOPRAMIDE HCL 10 MG/2 ML VIAL IVP ONE (10:00)
[2021-12-09 10:08] LABS: BASOPHILS # (AUTO) 0.1 K/uL (0.0-0.2); BASOPHILS % (AUTO) 0.4 % (0.0-2.0); EOSINOPHILS # (AUTO) 0.1 K/uL (0.0-0.4); EOSINOPHILS % (AUTO) 0.6 % (0.0-4.0); HEMATOCRIT 38.7 % (36-48); HEMOGLOBIN 12.7 g/dL (12.0-16.0); LYMPHOCYTES # (AUTO) 2.8 K/uL (1.0-5.5); LYMPHOCYTES % (AUTO) 21.2 % (20.5-51.5); MEAN CORPUSCULAR HEMOGLOBIN 30 pg (27-31); MEAN CORPUSCULAR HGB CONC 33 % (32-36); MEAN CORPUSCULAR VOLUME 93 fL (79.0-98.0); MONOCYTES # (AUTO) 0.8 K/uL (0.0-1.0); MONOCYTES % (AUTO) 6.1 % (1.7-9.3); NEUTROPHILS # (AUTO) 9.6 K/uL (1.8-7.7); NEUTROPHILS % (AUTO) 71.7 % (40.0-70.0); PLATELET COUNT (AUTO) 300 K/uL (130-430); RED BLOOD CELL COUNT(AUTO) 4.19 MIL/uL (4.2-6.2); RED CELL DISTRIBUTION WIDTH 13.4 % (9.0-15.0); WHITE BLOOD COUNT (AUTO) 13.4 K/uL (4.8-10.8)
[2021-12-09 10:21] LABS: CREATININE 0.9 mg/dL (0.55-1.30); POTASSIUM 3.4 mmol/L (3.5-5.1)
[2021-12-09] MEDS ORDERED: MORPHINE 4 MG INJ. 4 MG/ML VIAL IVP ONE (13:30)
[2021-12-09 13:49] VITALS: BP_SYST 152
== END 2021-12-09 13:50 | disposition home or self-care (01) ==
LOC: SED 08:07
DX: R51.9 Headache, unspecified (principal); Z88.8 Allergy status to other drugs, medicaments and biological substances; Z79.899 Other long term (current) drug therapy
CPT/HCPCS: 36415; 70450; 76376; 80048; 85025; 96361; 96374; 96375; 99284; J0515; J0780; J2270; J2765; J7030

== ENCOUNTER 2021-12-11 01:11 | Emergency (ER) | payer MEDICAID ==
[~2021-12-11] VITALS: Ht 170.2 cm; Wt 68.0 kg
[2021-12-11 01:30] VITALS: BP_SYST 146
[2021-12-11] MEDS ORDERED: methylPREDNISolone SOD SUCC/PF 62.5 MG/ML VIAL IVP ONE (02:15)
[2021-12-11] MEDS ORDERED: MORPHINE 4 MG INJ. 4 MG/ML VIAL IVP ONE ×2 (02:15→05:15)
[2021-12-11] MEDS ORDERED: METOCLOPRAMIDE HCL 10 MG/2 ML VIAL IVP ONE (02:15)
[2021-12-11] MEDS ORDERED: DIPHENHYDRAMINE INJ 50 MG/ML VIAL IVP ONE (02:15)
[2021-12-11 03:28] LABS: BASOPHILS % (AUTO) 0.5 % (0.0-2.0); EOSINOPHILS % (AUTO) 0.5 % (0.0-4.0); HEMATOCRIT 35.6 % (36-48); LYMPHOCYTES # (AUTO) 1.6 K/uL (1.0-5.5); LYMPHOCYTES % (AUTO) 19.7 % (20.5-51.5); MEAN CORPUSCULAR HEMOGLOBIN 31 pg (27-31); MEAN CORPUSCULAR HGB CONC 34 % (32-36); MEAN CORPUSCULAR VOLUME 93 fL (79.0-98.0); MONOCYTES # (AUTO) 0.6 K/uL (0.0-1.0); MONOCYTES % (AUTO) 6.7 % (1.7-9.3); NEUTROPHILS % (AUTO) 72.6 % (40.0-70.0); PLATELET COUNT (AUTO) 280 K/uL (130-430); RED BLOOD CELL COUNT(AUTO) 3.84 MIL/uL (4.2-6.2); RED CELL DISTRIBUTION WIDTH 13.3 % (9.0-15.0); WHITE BLOOD COUNT (AUTO) 8.2 K/uL (4.8-10.8)
[2021-12-11 03:31] LABS: CALCIUM 9.6 mg/dL (8.4-11.0); CREATININE 1.04 mg/dL (0.55-1.30)
[2021-12-11 03:42] LABS: ALBUMIN 4.4 g/dL (3.4-4.8); TOTAL BILIRUBIN 0.2 mg/dL (0.0-1.0)
[2021-12-11 04:22] LABS: POTASSIUM 4.1 mmol/L (3.5-5.1)
[2021-12-11 06:10] VITALS: BP_SYST 142
[2021-12-11] MEDS ORDERED: NALT50TA PO (19:28)
[2021-12-11] MEDS ORDERED: GUAN1TAB PO (19:29)
[2021-12-11] MEDS ORDERED: ARIP20TA4 PO (19:32)
[2021-12-11] MEDS ORDERED: DONE10TA44 PO (19:33)
[2021-12-11] MEDS ORDERED: PRO20 PO (19:34)
[2021-12-11] MEDS ORDERED: PRED10TA PO ×2 (19:35→19:36)
[2021-12-11] MEDS ORDERED: GABA800T PO (19:37)
[2021-12-11] MEDS ORDERED: BACL10TA PO (19:38)
[2021-12-11] MEDS ORDERED: WELSR100 PO (19:39)
[2021-12-11] MEDS ORDERED: OXYC10TA56 PO (19:41)
[2021-12-11] MEDS ORDERED: FLO44 INH (19:42)
== END 2021-12-11 06:10 | disposition home or self-care (01) ==
LOC: SED 01:11
DX: R51.9 Headache, unspecified (principal); Z88.1 Allergy status to other antibiotic agents; Z88.8 Allergy status to other drugs, medicaments and biological substances; Z79.899 Other long term (current) drug therapy
CPT/HCPCS: 36415; 70496; 76376; 80053; 81025; 84702; 85025; 96374; 96375; 96376; 99285; J1200; J2270; J2765; J2930; Q9967

== ENCOUNTER 2021-12-16 08:14 | Emergency (ER) | payer MEDICAID ==
[~2021-12-16] VITALS: Ht 170.2 cm; Wt 68.0 kg
[~2021-12-16 08:14] MED LIST changes: -ALPR-373 PO; -AMOX500C2 PO; +ARIP20TA4 PO; +BACL10TA PO; +DONE10TA44 PO; +GABA800T PO; +GUAN1TAB PO; -LORA-259 PO; +NALT50TA PO; +OXYC10TA56 PO; +PRED10TA PO; +WELSR100 PO
[2021-12-16 08:23] VITALS: BP_SYST 130
--- NOTE | 2021-12-16 08:31 | NUR ---
rn tk. pt bib pov for nausea and vomiting since 12/11/2021. placed in room 8. triage complete. md to see.
[2021-12-16] MEDS ORDERED: NACL 0.9% 1,000 ML IV ONE (09:00)
[2021-12-16] MEDS ORDERED: BENZTROPINE MESYLATE 2 MG/ 2 ML AMP IVP ONE (09:00)
[2021-12-16] MEDS ORDERED: PROCHLORPERAZINE EDISYLATE 10 MG/2 ML VIAL IVP ONE (09:00)
--- NOTE | 2021-12-16 09:43 | NUR ---
blood urine to lab piv inserted pt medicated vss
[2021-12-16 09:57] LABS: BILIRUBIN,URINE NEGATIVE (NEGATIVE); CLARITY/URINE CLEAR (CLEAR); COLOR,URINE YELLOW (YELLOW); GLUCOSE,URINE NEGATIVE (NEGATIVE); KETONES,URINE NEGATIVE (NEGATIVE); LEUKOCYTE ESTERASE ,URINE NEGATIVE (NEGATIVE); NITRITE, URINE NEGATIVE (NEGATIVE); PROTEIN URINE NEGATIVE (NEGATIVE); UROBILINOGEN,URINE 0.2 (0.2-1.0)
[2021-12-16 10:08] LABS: BLOOD, URINE TRACE (NEGATIVE)
[2021-12-16] MEDS ORDERED: KETOROLAC TROMETHAMINE 30 MG VIAL IVP ONE (11:00)
[2021-12-16 11:11] LABS: BACTERIA,URINE FEW /HPF (None Seen); MUCUS,URINE 1+ /LPF (None Seen); WBC,URINE 0-3 /HPF (0-3)
[2021-12-16 11:19] VITALS: BP_SYST 132
--- NOTE | 2021-12-16 11:20 | NUR ---
Patient given written and verbal discharge instructions and verbalizes understanding. PAGE DAWKINS MD discussed with patient the results and treatment provided. Patient in stable condition. ID arm band removed. IV catheter removed intact and dressing applied, no active bleeding. Patient educated on pain management and to follow up with PMD. Pain Scale 0. Opportunity for questions provided and answered. Medication side effect fact sheet provided.
== END 2021-12-16 11:19 | disposition home or self-care (01) ==
LOC: SED 08:14
DX: G43.909 Migraine, unspecified, not intractable, without status migrainosus (principal); Z88.0 Allergy status to penicillin; Z88.1 Allergy status to other antibiotic agents; Z88.4 Allergy status to anesthetic agent; Z91.041 Radiographic dye allergy status
CPT/HCPCS: 81000; 96361; 96374; 96375; 99284; J0515; J0780; J1885; J7030

== ENCOUNTER 2021-12-23 03:48 | Emergency (ER) | payer MEDICAID ==
[~2021-12-23] VITALS: Ht 167.6 cm; Wt 68.0 kg
--- NOTE | 2021-12-23 04:01 | NUR ---
Placed in room 6 . Placed on youth nutritional monitor, blood pressure machine and pulse oximeter. To gown for exam. Side rails up. Report given to GRETEL WEISS.
--- NOTE | 2021-12-23 04:05 | NUR ---
DR LAZO AT BEDSIDE FOR EXAM
--- NOTE | 2021-12-23 04:05 | NUR ---
Pt BIB brother from home d/t increased confusion with gradual onset of headache throughout day. Pt was unable to be redirected at home and appeared altered to family members. Arrived to ED confused; oriented to name and location only. Breathing adequately on RA. No acute signs of distress.
[2021-12-23 04:06] VITALS: BP_SYST 137
[2021-12-23] MEDS ORDERED: NACL 0.9% 1,000 ML IV ONE (04:15)
[2021-12-23 04:26] LABS: BASOPHILS % (AUTO) 0.3 % (0.0-2.0); EOSINOPHILS # (AUTO) 0.1 K/uL (0.0-0.4); EOSINOPHILS % (AUTO) 0.5 % (0.0-4.0); HEMOGLOBIN 12.4 g/dL (12.0-16.0); LYMPHOCYTES # (AUTO) 2.2 K/uL (1.0-5.5); LYMPHOCYTES % (AUTO) 20.7 % (20.5-51.5); MEAN CORPUSCULAR HEMOGLOBIN 31 pg (27-31); MEAN CORPUSCULAR HGB CONC 34 % (32-36); MEAN CORPUSCULAR VOLUME 93 fL (79.0-98.0); MONOCYTES # (AUTO) 0.5 K/uL (0.0-1.0); MONOCYTES % (AUTO) 4.9 % (1.7-9.3); NEUTROPHILS # (AUTO) 7.9 K/uL (1.8-7.7); NEUTROPHILS % (AUTO) 73.6 % (40.0-70.0); PLATELET COUNT (AUTO) 249 K/uL (130-430); RED BLOOD CELL COUNT(AUTO) 3.97 MIL/uL (4.2-6.2); RED CELL DISTRIBUTION WIDTH 12.6 % (9.0-15.0); WHITE BLOOD COUNT (AUTO) 10.7 K/uL (4.8-10.8)
[2021-12-23] MEDS ORDERED: DEXAMETHASONE SOD PHOSPHATE 10 MG/ML VIAL IVP ONE (04:30)
[2021-12-23] MEDS ORDERED: LORazepam 2 MG/ML VIAL IVP ONE (04:30)
[2021-12-23] MEDS ORDERED: KETOROLAC TROMETHAMINE 30 MG VIAL IVP ONE (04:30)
--- NOTE | 2021-12-23 04:40 | NUR ---
Pt taken to RAD for imaging.
[2021-12-23 05:09] LABS: ALBUMIN 4.2 g/dL (3.4-4.8)
[2021-12-23 05:35] LABS: ALANINE AMINOTRANSFERASE 3 U/L (12-78); ANION GAP 6 (5-15); ASPARTATE AMINOTRANSFERASE 11 U/L (10-37); CHLORIDE 102 mmol/L (98-107); POTASSIUM 3.8 mmol/L (3.5-5.1); SODIUM SERUM 136 mmol/L (136-145); TOTAL BILIRUBIN 0.2 mg/dL (0.0-1.0); UREA NITROGEN, BLOOD 1 mg/dL (8-21)
[2021-12-23 05:38] LABS: CALCIUM < 5.0 mg/dL (8.4-11.0)
[2021-12-23 05:39] LABS: ALCOHOL, BLOOD < 3 mg/dL (<10)
[2021-12-23 05:41] LABS: GLUCOSE 100 mg/dL (70-99)
[2021-12-23 05:54] LABS: GFR AFRICAN AMERICAN 80 mL/min (>90)
[2021-12-23 05:55] LABS: ACETAMINOPHEN < 1 ug/mL (1-30)
[2021-12-23 06:14] LABS: BILIRUBIN,URINE NEGATIVE (NEGATIVE); BLOOD, URINE NEGATIVE (NEGATIVE); CLARITY/URINE CLEAR (CLEAR); COLOR,URINE YELLOW (YELLOW); GLUCOSE,URINE NEGATIVE (NEGATIVE); KETONES,URINE NEGATIVE (NEGATIVE); LEUKOCYTE ESTERASE ,URINE NEGATIVE (NEGATIVE); NITRITE, URINE NEGATIVE (NEGATIVE); PROTEIN URINE NEGATIVE (NEGATIVE); UROBILINOGEN,URINE 0.2 (0.2-1.0)
--- NOTE | 2021-12-23 06:26 | NUR ---
CLS spoke to MD Russo regarding CL for Calcium of 0.5 and another level of 10.0 which were performed using 2 seperate machines. MD requested for redraw at this time. Pt resting comfortably in bed at this time. No acute signs of distress. Brother at bedside.
[2021-12-23 06:34] LABS: BARBITURATE, URINE NEGATIVE (NEG <=200); BENZODIAZEPINE, URINE NEGATIVE (NEG <=150); CANNABINOID, URINE NEGATIVE (NEG <=50); COCAINE, URINE NEGATIVE (NEG <=150); METHAMPHETAMINES SCREEN,URINE NEGATIVE (NEG <=500); OPIATE, URINE NEGATIVE (NEG <=100); PHENCYCLIDINE SCREEN,URINE NEGATIVE (NEG <=25); UR TRICYCLIC ANTIDEPRESSANTS NEGATIVE (NEG <=300); URINE AMPHETAMINE NEGATIVE (NEG <=500); URINE METHADONE NEGATIVE (NEG <=200); URINE OXYCODONE SCREEN POSITIVE (NEG <=100); URINE PROPOXYPHENE SCREEN NEGATIVE (NEG <=300)
[2021-12-23 06:59] LABS: ALANINE AMINOTRANSFERASE 26 U/L (12-78); ALBUMIN 3.5 g/dL (3.4-4.8); ANION GAP 8 (5-15); ASPARTATE AMINOTRANSFERASE 13 U/L (10-37); CALCIUM 8.9 mg/dL (8.4-11.0); CHLORIDE 106 mmol/L (98-107); CREATININE 0.94 mg/dL (0.55-1.30); GLUCOSE 100 mg/dL (70-99); POTASSIUM 3.4 mmol/L (3.5-5.1); SODIUM SERUM 143 mmol/L (136-145); UREA NITROGEN, BLOOD 14 mg/dL (8-21)
[2021-12-23 07:03] LABS: GFR AFRICAN AMERICAN 86 mL/min (>90)
[2021-12-23 07:04] LABS: TOTAL BILIRUBIN < 0.1 mg/dL (0.0-1.0)
--- NOTE | 2021-12-23 07:08 | NUR ---
Care/report endorsed to ABHISHEK Collier.
--- NOTE | 2021-12-23 07:11 | NUR ---
RECIEVED RPRT FROM ABHISHEK MAJANO, ASSESSED PT NO ACUTE CHANGES IN VS. PT RESTING COMFORTABLY IN BED WITH EYES CLOSED. BED LOWERED AND JAYCEE RAILS UP.
[2021-12-23] MEDS ORDERED: POTASSIUM CHLORIDE 20 MEQ TAB.PRT.SR PO ONE (07:15)
[2021-12-23 07:35] VITALS: BP_SYST 96
--- NOTE | 2021-12-23 07:37 | NUR ---
Patient given written and verbal discharge instructions and verbalizes understanding. ER Dr Lawrence REGALADO discussed with patient the results and treatment provided. Patient in stable condition. ID arm band removed. IV catheter removed intact and dressing applied, no active bleeding. NO Rx of given. follow up with PMD. Pain Scale . Opportunity for questions provided and answered. Medication side effect fact sheet provided.
== END 2021-12-23 07:37 | disposition home or self-care (01) ==
LOC: SED 03:48
DX: R41.0 Disorientation, unspecified (principal); Z88.0 Allergy status to penicillin; Z91.041 Radiographic dye allergy status; Z20.822 Contact with and (suspected) exposure to COVID-19
CPT/HCPCS: 36415; 70450; 76376; 80053; 80307; 81003; 82962; 85025; 87426; 96365; 96375; 99284; G0480; G0481; G0482; J1100; J1885; J2060

== ENCOUNTER 2022-02-02 17:38 | Emergency (ER) | payer MEDICAID ==
[~2022-02-02] VITALS: Ht 170.2 cm; Wt 68.0 kg
[2022-02-02 17:50] VITALS: BP_SYST 108
[2022-02-02 20:25] LABS: BARBITURATE, URINE NEGATIVE (NEG <=200); URINE AMPHETAMINE NEGATIVE (NEG <=500)
[2022-02-02 20:26] LABS: BENZODIAZEPINE, URINE POSITIVE (NEG <=150); CANNABINOID, URINE POSITIVE (NEG <=50); COCAINE, URINE NEGATIVE (NEG <=150); METHAMPHETAMINES SCREEN,URINE NEGATIVE (NEG <=500); OPIATE, URINE NEGATIVE (NEG <=100); PHENCYCLIDINE SCREEN,URINE NEGATIVE (NEG <=25); UR TRICYCLIC ANTIDEPRESSANTS NEGATIVE (NEG <=300); URINE METHADONE NEGATIVE (NEG <=200); URINE OXYCODONE SCREEN POSITIVE (NEG <=100); URINE PROPOXYPHENE SCREEN NEGATIVE (NEG <=300)
[2022-02-02 20:44] LABS: ANION GAP 7 (5-15); CALCIUM 8.6 mg/dL (8.4-11.0); CHLORIDE 103 mmol/L (98-107); CREATININE 1.22 mg/dL (0.55-1.30); GLUCOSE 104 mg/dL (70-99); POTASSIUM 3.9 mmol/L (3.5-5.1); SODIUM SERUM 137 mmol/L (136-145); UREA NITROGEN, BLOOD 20 mg/dL (8-21)
[2022-02-02 20:52] LABS: BASOPHILS % (AUTO) 0.4 % (0.0-2.0); EOSINOPHILS # (AUTO) 0.3 K/uL (0.0-0.4); EOSINOPHILS % (AUTO) 3.2 % (0.0-4.0); HEMATOCRIT 34.4 % (36-48); HEMOGLOBIN 11.9 g/dL (12.0-16.0); LYMPHOCYTES % (AUTO) 24.8 % (20.5-51.5); MEAN CORPUSCULAR HEMOGLOBIN 31 pg (27-31); MEAN CORPUSCULAR HGB CONC 35 % (32-36); MEAN CORPUSCULAR VOLUME 90 fL (79.0-98.0); MONOCYTES # (AUTO) 0.5 K/uL (0.0-1.0); MONOCYTES % (AUTO) 6.8 % (1.7-9.3); NEUTROPHILS # (AUTO) 5.2 K/uL (1.8-7.7); NEUTROPHILS % (AUTO) 64.8 % (40.0-70.0); PLATELET COUNT (AUTO) 269 K/uL (130-430); RED BLOOD CELL COUNT(AUTO) 3.81 MIL/uL (4.2-6.2); RED CELL DISTRIBUTION WIDTH 11.8 % (9.0-15.0)
[2022-02-02 20:56] LABS: ALANINE AMINOTRANSFERASE 12 U/L (12-78); ASPARTATE AMINOTRANSFERASE 15 U/L (10-37); TOTAL BILIRUBIN 0.2 mg/dL (0.0-1.0)
[2022-02-02 21:01] LABS: ALCOHOL, BLOOD < 3 mg/dL (<10); GFR AFRICAN AMERICAN 64 mL/min (>90)
[2022-02-02 21:02] LABS: ACETAMINOPHEN < 1 ug/mL (1-30)
[2022-02-02 21:34] VITALS: BP_SYST 124
== END 2022-02-02 21:35 | disposition home or self-care (01) ==
LOC: SED 17:38
DX: R41.82 Altered mental status, unspecified (principal); Z88.1 Allergy status to other antibiotic agents; Z88.4 Allergy status to anesthetic agent; Z91.041 Radiographic dye allergy status; F12.90 Cannabis use, unspecified, uncomplicated
CPT/HCPCS: 36415; 70450; 76376; 80053; 80307; 81025; 84703; 85025; 99284; G0480; G0481; G0482

== ENCOUNTER 2022-02-16 18:22 | Emergency (ER) | payer MEDICAID ==
[~2022-02-16] VITALS: Ht 170.2 cm; Wt 68.0 kg
[2022-02-16 18:22] VITALS: BP_SYST 94
--- NOTE | 2022-02-16 18:25 | NUR ---
Patient triaged and placed in waiting room. VSS and patient appears in no acute distress at this time. Accompanied by FAMILY, awaiting available bed, and MD notified of need for MSE.
--- NOTE | 2022-02-16 18:42 | NUR ---
DR HINES OUT TO TRIAGE ROOM FOR EVALUATION
--- NOTE | 2022-02-16 19:10 | NUR ---
Patient given written and verbal discharge instructions and verbalizes understanding. ER MD discussed with patient the results and treatment provided. Patient in stable condition. ID arm band removed. IV catheter removed intact and dressing applied, no active bleeding. Rx of n/a given. Patient educated on pain management and to follow up with PMD. Pain Scale . Opportunity for questions provided and answered. Medication side effect fact sheet provided.
== END 2022-02-16 19:10 | disposition home or self-care (01) ==
LOC: SED 18:22
DX: R41.0 Disorientation, unspecified (principal); Z88.1 Allergy status to other antibiotic agents; Z88.4 Allergy status to anesthetic agent; Z91.041 Radiographic dye allergy status; F12.90 Cannabis use, unspecified, uncomplicated; Z79.899 Other long term (current) drug therapy
CPT/HCPCS: 93005; 99281; 99283